=== PATIENT | male | born 1975 | race Caucasian/White ===

== ENCOUNTER 2017-04-01 11:13 | Emergency (ER) | payer SELFPAY ==
[2017-04-01 11:17] VITALS: BP 142/90; PULSE 102; RESP 20; TEMP 98.8
[2017-04-01] MEDS ORDERED: BACT800T5 PO (11:59)
--- NOTE | 2017-04-01 11:59 | PD ---
HPI Chief Complaint: Skin Problem Time Seen by Provider: 11:45 Travel History International Travel<30 days: No Contact w/Intl Traveler<30days: No Traveled to known affect area: No History of Present Illness HPI 41-year-old male presents to the emergency room for evaluation of red, painful area to his left lateral arm for the past 2 days. Patient states it started after he was poked by tree debris. He did not actually see the spike in did not remove it. States since then he has had increasing pain, redness, and swelling to his left elbow. He has been applying mupirocin and states it significantly reduced the redness and swelling. He denies any drainage. He took ibuprofen for pain. Denies fever, chills, nausea, and vomiting. No chronic medical conditions or daily medications. PFSH Past Medical History Medical History: Denies Significant Hx Past Surgical History Surgical History: No Previous Surgery Social History Alcohol Use: No Tobacco Use: Yes (3 PKS/WEEK) Substance Use: No Allergies-Medications (Allergen,Severity, Reaction): Coded Allergies: No Known Allergies (Verified Allergy, Unknown, 04/01/17) Reported Meds & Prescriptions Reported Meds & Active Scripts Active Bactrim DS (Sulfamethoxazole-Trimethoprim) 800-160 Mg Tab 1 Tab PO BID Review of Systems Except as stated in HPI: all other systems reviewed are Neg Physical Exam Narrative GENERAL: Well-nourished, well-developed male in no acute distress. Afebrile. Ambulatory. SKIN: Focused skin assessment warm/dry.There is an indurated area in the left proximal forearm which measures about 4 cm in diameter. It is fluctuant but there is no pointing or drainage. There is a zone of inflammation around it but no lymphangitis. HEAD: Normocephalic. EYES: No scleral icterus. No injection or drainage. NECK: Supple, trachea midline. No JVD or lymphadenopathy. CARDIOVASCULAR: Regular rate and rhythm without murmurs, gallops, or rubs. RESPIRATORY: Breath sounds equal bilaterally. No accessory muscle use. MUSCULOSKELETAL: No cyanosis, or edema. 2+ radial pulse. Full range of motion of the left upper extremity. Data Data Last Documented VS Vital Signs Date Time Temp Pulse Resp B/P (MAP) Pulse Ox O2 Delivery O2 Flow Rate FiO2 04/01/17 11:17 98.8 102 20 142/90 (107) Orders Orders Lidocaine 1% Inj (50 Ml) (Xylocaine 1% I (04/01/17 12:00) Wound Culture And Gram Stain (04/01/17 12:17) [facility] Medical Decision Making Medical Screen Exam Complete: Yes Emergency Medical Condition: Yes Medical Record Reviewed: Yes Differential Diagnosis Abscess, foreign body, folliculitis, cellulitis Narrative Course 41-year-old male presents to the emergency room for evaluation of an abscess to his left proximal forearm, dorsal that started after being poked by a tree 2 days ago. After applying mupirocin, it has significantly decreased. Denies systemic signs of infection. He is afebrile and well-appearing in the emergency room. Resting comfortably in bed. Full range motion of the left upper extremity with 2+ radial pulse. There is a 4 cm area of induration with pointing but no drainage. No lymphangitis. Abscess was drained, see procedure for details. Patient discharged with Bactrim and told to follow-up with her primary care physician or return for worsening symptoms. He understands and agrees to plan. Procedures Procedure Narrative INCISION AND DRAINAGE OF ABSCESS: The area was prepped and was sterilely draped. A subcutaneous wheal of 1% lidocaine with a total number 2 mL was used to anesthetize the area properly. A number 11 scalpel was used to make a 1 cm incision across the area of the abscess. The abscess was drained, complex loculations were broken down, and irrigated with normal saline. Cultures were obtained. Sterile dressing applied. Diagnosis Primary Impression: Abscess of left forearm Referrals: Primary Care Physician Additional Instructions: Rest and drink plenty of fluids. Take Bactrim as directed, until gone. Follow up with a primary care physician. Return to emergency room for worsening symptoms, as discussed. Med/Other Pt SpecificInfo: Prescription(s) given Scripts Sulfamethoxazole-Trimethoprim (Bactrim DS) 800-160 Mg Tab 1 TAB PO BID for Infection, #20 TAB 0 Refills Prov: Barbie Cormier 04/01/17 Disposition: 01 DISCHARGE HOME Condition: Stable Catie Camacho Apr 01, 2017 11:59
[2017-04-01] MEDS ORDERED: LIDOCAINE HCL 1% 50 ML VIAL INFIL ONE (12:00)
== END 2017-04-01 12:58 | disposition home or self-care (01) ==
LOC: PHEFT 11:13
DX: L02.414 Cutaneous abscess of left upper limb (principal); B95.62 Methicillin resistant Staphylococcus aureus infection as the cause of diseases classified elsewhere
CPT/HCPCS: 10060; 86403; 87070; 87186

== ENCOUNTER 2017-04-12 11:30 | Emergency (ER) | payer MEDICAID ==
[~2017-04-12] VITALS: Ht 185.4 cm; Wt 95.0 kg
[~2017-04-12 11:30] MED LIST: BACT800T5 PO
[2017-04-12 11:38] VITALS: BP 139/65; PULSE 80; RESP 16; TEMP 98.8; O2SAT 97
--- NOTE | 2017-04-12 11:53 | PD ---
HPI Chief Complaint: Wound/Suture/Staple Re-Check Time Seen by Provider: 11:46 Travel History International Travel<30 days: No Contact w/Intl Traveler<30days: No Traveled to known affect area: No History of Present Illness HPI 41-year-old male presents emergency department for wound recheck of an abscess on his left upper external. Patient reports he received a letter in the mail stating that he had MRSA and it was recommended that he follow-up with his doctor. Patient does not have a doctor therefore presents emergency department for recheck. He reports the area has decreased in size and is on was completely healed. He denies fever or chills. He denies pain in the chimney. Patient was placed on Bactrim which is appropriate treatment for MRSA PFSH Past Medical History Medical History: Denies Significant Hx Tetanus Vaccination: Unknown Influenza Vaccination: No Past Surgical History Surgical History: No Previous Surgery Social History Alcohol Use: No Tobacco Use: Yes (3 packs/week) Substance Use: No Allergies-Medications (Allergen,Severity, Reaction): Coded Allergies: No Known Allergies (Unverified , 04/12/17) Reported Meds & Prescriptions Reported Meds & Active Scripts Active Bactrim DS (Sulfamethoxazole-Trimethoprim) 800-160 Mg Tab 1 Tab PO BID Review of Systems Except as stated in HPI: all other systems reviewed are Neg Physical Exam Narrative GENERAL: Well-nourished, well-developed patient. SKIN: Focused skin assessment warm/dry. Patient has a healing abscess to the left upper extremity. The area has a small 4 mm open area draining serosanguineous drainage. There is no surrounding saline. There is no induration, fluctuance, lymphangitis. HEAD: Normocephalic. EYES: No scleral icterus. No injection or drainage. NECK: Supple, trachea midline. No JVD or lymphadenopathy. MUSCULOSKELETAL: No cyanosis, or edema. Patient has a healing abscess to the left upper extremity. The area has a small 4 mm open area draining serosanguineous drainage. There is no surrounding saline. There is no induration, fluctuance, lymphangitis. Data Data Last Documented VS Vital Signs Date Time Temp Pulse Resp B/P (MAP) Pulse Ox O2 Delivery O2 Flow Rate FiO2 04/12/17 11:38 98.8 80 16 139/65 (89) 97 MDM Medical Decision Making Medical Screen Exam Complete: Yes Emergency Medical Condition: Yes Differential Diagnosis Wound recheck, abscess, cellulitis Narrative Course 41-year-old male presents to the emergency department for wound recheck of an abscess left upper extremity. The abscess was incised and drained approximately 9 days ago. Patient is placed on Bactrim. He reports compliance with the antibiotic. He received a letter in the mail stating he needed follow- up with his primary care doctor regarding MRSA. Patient has no insurance and therefore presents here for a recheck. He denies fever or chills. On exam patient has a healing abscess of left upper extremity. Patient was advised to continue the Bactrim as directed. Diagnosis Primary Impression: Encounter for wound re-check Referrals: [facility] Disposition: 01 DISCHARGE HOME Condition: Stable Margie Maxwell Apr 12, 2017 11:53
== END 2017-04-12 12:05 | disposition home or self-care (01) ==
LOC: PHEFT 11:30
DX: L02.414 Cutaneous abscess of left upper limb (principal); B95.62 Methicillin resistant Staphylococcus aureus infection as the cause of diseases classified elsewhere
CPT/HCPCS: 99281